=== PATIENT | male | born 1965 | race Caucasian/White ===

== ENCOUNTER → 2020-08-22 | Day surgery (SDC) | payer OTHER | LOC: MSO 07:14 | DX: Z12.11 Encounter for screening for malignant neoplasm of colon (principal); D12.8 Benign neoplasm of rectum; Z85.820 Personal history of malignant melanoma of skin; Z80.0 Family history of malignant neoplasm of digestive organs; Z83.71 Family history of colonic polyps | CPT/HCPCS: 00811; J2704; J7120 ==